=== PATIENT | male | born 1955 | race Hispanic/Latino ===

== ENCOUNTER 2019-02-01 11:44 | Outpatient (CLI) | payer OTHER ==
--- NOTE | 2019-02-01 12:08 | RAD ---
2 VIEWS LEFT SHOULDER: Date: 02/01/19 COMPARISON: None. HISTORY: left shoulder pain for 10 days. FINDINGS: 2 views of the left shoulder show no evidence of acute fracture or dislocation. No degenerative loving es are seen. No soft tissue swelling is present. IMPRESSION: Unremarkable exam. POS: [facility]
== END 2019-02-01 11:45 | disposition home or self-care (01) ==
LOC: BICRAD 11:44
PROVIDERS: ATTEND Family Medicine
DX: M25.512 Pain in left shoulder (principal); M25.522 Pain in left elbow

== ENCOUNTER 2024-07-24 23:49 | Inpatient (IN) | payer MEDICARE ==
[2024-07-25 02:36] VITALS: BMI 35.6
[2024-07-25] MEDS ORDERED: Ketorolac Tromethamine 30 MG (1 mL) VIAL IVP PRN (02:45)
[2024-07-25] MEDS: Sodium Chloride 0.9% 1,000 ML IV SCH (04:11)
[2024-07-25] MEDS: Piperacillin/Tazobactam 3.375 GM in Sodium Chloride 0.9% 100 ML IVPB SCH ×2 (04:11→09:04)
[2024-07-25] MEDS: Morphine 2 MG/ML VIAL SLOW IVP PRN (04:11)
[2024-07-25] MEDS ORDERED: Piperacillin/Tazobactam 4.5 GM in Sodium Chloride 0.9% 100 ML IVPB SCH (05:30)
[2024-07-25 05:42] LABS: #Basophils Less than 0.03 10x3/uL (0.0-0.2); #Eosinophils Less than 0.03 10x3/uL (0.0-0.7); %Basophils 0.1 % (0.0-1.0); %Eosinophils 0.1 % (0.0-10.0); %Lymphocytes 13.7 % (21.0-51.0); %Monocytes 6.7 % (0.0-10.0); %Neutrophils 78.9 % (42.0-75.0); Hematocrit 39.2 % (42.0-52.0); Hemoglobin 12.9 g/dL (14.0-18.0); Mean Corpuscular HGB CONC 32.9 g/dL (32.0-36.0); Mean Corpuscular Hemoglobin 31.4 pg (27.0-31.0); Mean Corpuscular Volume 95.4 fL (78.0-98.0); Mean Platelet Volume 9.4 fL (7.4-10.4); Platelet Count 187 10x3/uL (130-400); RBC Distribution Width 13.3 % (11.5-14.5); Red Blood Cell (RBC) Count 4.11 mill/uL (4.70-6.10)
[2024-07-25 06:01] LABS: ALT (SGPT) 26 U/L (8-55); AST (SGOT) 17 U/L (5-34); Albumin 3.1 g/dL (3.4-4.8); Alkaline Phosphatase 62 U/L (40-110); Anion Gap 11 mmol/L (10-20); BUN (Urea Nitrogen) 15 mg/dL (8.4-25.7); Bilirubin, Total 1.2 mg/dL (0.2-1.2); Calc. Creatinine Clearance 122 mL/min (70-130); Calcium 8.4 mg/dL (7.8-10.44); Carbon Dioxide 24 mmol/L (23-31); Chloride 107 mmol/L (98-107); Estimated GFR 98; Globulin 3.4 g/dL (2.4-3.5); Glucose 115 mg/dL (80-115); Potassium 4.2 mmol/L (3.5-5.1); Protein, Total 6.5 g/dL (5.8-8.1); Sodium 138 mmol/L (136-145)
[2024-07-25] MEDS: FLU (Fluad Triv) TS24-25 (65UP)/MF59C/PF 45 MCG/0.5 ML Syringe IM ONE (09:04)
[2024-07-25] MEDS: Pantoprazole 40 MG VIAL IVP SCH (09:04)
[2024-07-25] MEDS: Acetaminophen 500 MG TAB PO SCH ×2 (15:44→15:50)
[2024-07-25] MEDS: Lactated Ringer's 1,000 ML IV SCH (15:45)
[2024-07-25] MEDS: Enoxaparin 40 MG (0.4 mL) SYRINGE SC SCH (20:41)
[2024-07-25] MEDS: Polyethylene Glycol 3350 17 GM Packet PO SCH (20:41)
[2024-07-26 04:42] LABS: #Basophils Less than 0.03 10x3/uL (0.0-0.2); %Basophils 0.2 % (0.0-1.0); %Eosinophils 0.7 % (0.0-10.0); %Lymphocytes 25.2 % (21.0-51.0); %Neutrophils 64.6 % (42.0-75.0); Hematocrit 39.9 % (42.0-52.0); Hemoglobin 13.4 g/dL (14.0-18.0); Mean Corpuscular HGB CONC 33.6 g/dL (32.0-36.0); Mean Corpuscular Volume 92.4 fL (78.0-98.0); Mean Platelet Volume 9.7 fL (7.4-10.4); Platelet Count 186 10x3/uL (130-400); RBC Distribution Width 13.3 % (11.5-14.5); Red Blood Cell (RBC) Count 4.32 mill/uL (4.70-6.10)
[2024-07-26 05:17] LABS: ALT (SGPT) 23 U/L (8-55); AST (SGOT) 20 U/L (5-34); Albumin 2.9 g/dL (3.4-4.8); Alkaline Phosphatase 56 U/L (40-110); Anion Gap 11 mmol/L (10-20); BUN (Urea Nitrogen) 13 mg/dL (8.4-25.7); Bilirubin, Total 0.9 mg/dL (0.2-1.2); Calc. Creatinine Clearance 105 mL/min (70-130); Calcium 8.7 mg/dL (7.8-10.44); Carbon Dioxide 27 mmol/L (23-31); Chloride 108 mmol/L (98-107); Estimated GFR 92; Globulin 3.4 g/dL (2.4-3.5); Glucose 84 mg/dL (80-115); Potassium 4.1 mmol/L (3.5-5.1); Protein, Total 6.3 g/dL (5.8-8.1); Sodium 142 mmol/L (136-145)
[2024-07-26] MEDS: Morphine 2 MG/ML VIAL SLOW IVP PRN (06:58)
[2024-07-26] MEDS: Ondansetron PF 4 MG/2 ML Vial IVP PRN (08:44)
[2024-07-26] MEDS ORDERED: HYDROcodone/Acetaminophen 5/325 mg Tablet PO PRN (17:52)
[2024-07-26] MEDS: HYDROcodone/Acetaminophen 5/325 mg Tablet PO PRN (21:07)
[2024-07-27 04:48] LABS: #Basophils 0.03 10x3/uL (0.0-0.2); %Basophils 0.3 % (0.0-1.0); %Lymphocytes 24.2 % (21.0-51.0); %Monocytes 10.5 % (0.0-10.0); %Neutrophils 63.7 % (42.0-75.0); Hematocrit 41.8 % (42.0-52.0); Hemoglobin 13.9 g/dL (14.0-18.0); Mean Corpuscular HGB CONC 33.3 g/dL (32.0-36.0); Mean Corpuscular Hemoglobin 31.7 pg (27.0-31.0); Mean Corpuscular Volume 95.2 fL (78.0-98.0); Mean Platelet Volume 9.4 fL (7.4-10.4); Platelet Count 209 10x3/uL (130-400); Red Blood Cell (RBC) Count 4.39 mill/uL (4.70-6.10)
[2024-07-27 05:22] LABS: ALT (SGPT) 20 U/L (8-55); AST (SGOT) 14 U/L (5-34); Albumin 3.1 g/dL (3.4-4.8); Alkaline Phosphatase 62 U/L (40-110); Anion Gap 12 mmol/L (10-20); BUN (Urea Nitrogen) 11 mg/dL (8.4-25.7); Bilirubin, Total 1.2 mg/dL (0.2-1.2); Calc. Creatinine Clearance 110 mL/min (70-130); Calcium 8.8 mg/dL (7.8-10.44); Carbon Dioxide 26 mmol/L (23-31); Chloride 104 mmol/L (98-107); Estimated GFR 95; Globulin 3.6 g/dL (2.4-3.5); Glucose 82 mg/dL (80-115); Potassium 3.6 mmol/L (3.5-5.1); Protein, Total 6.7 g/dL (5.8-8.1); Sodium 138 mmol/L (136-145)
[2024-07-27] MEDS: Potassium Chloride 20 MEQ TAB PO SCH (11:46)
[2024-07-27] MEDS: Lactated Ringer's 1,000 ML IV SCH (11:47)
[2024-07-27] MEDS ORDERED: Cyclobenzaprine 10 MG TAB PO PRN (13:05)
[2024-07-27] MEDS ORDERED: Acetaminophen 500 MG TAB PO PRN (13:17)
[2024-07-27] MEDS: oxyCODONE/Acetaminophen 5 mg/325 mg Tablet PO SCH (15:14)
[2024-07-28 05:42] LABS: #Basophils Less than 0.03 10x3/uL (0.0-0.2); %Basophils 0.2 % (0.0-1.0); %Eosinophils 0.9 % (0.0-10.0); %Lymphocytes 24.8 % (21.0-51.0); %Monocytes 9.1 % (0.0-10.0); %Neutrophils 64.8 % (42.0-75.0); Hemoglobin 14.1 g/dL (14.0-18.0); Mean Corpuscular HGB CONC 34.4 g/dL (32.0-36.0); Mean Corpuscular Hemoglobin 31.1 pg (27.0-31.0); Mean Corpuscular Volume 90.5 fL (78.0-98.0); Mean Platelet Volume 9.2 fL (7.4-10.4); Platelet Count 232 10x3/uL (130-400); RBC Distribution Width 12.7 % (11.5-14.5); Red Blood Cell (RBC) Count 4.53 mill/uL (4.70-6.10)
[2024-07-28 06:05] LABS: ALT (SGPT) 20 U/L (8-55); AST (SGOT) 18 U/L (5-34); Alkaline Phosphatase 69 U/L (40-110); Anion Gap 12 mmol/L (10-20); BUN (Urea Nitrogen) 11 mg/dL (8.4-25.7); Bilirubin, Total 1.3 mg/dL (0.2-1.2); Calc. Creatinine Clearance 97 mL/min (70-130); Calcium 8.8 mg/dL (7.8-10.44); Carbon Dioxide 24 mmol/L (23-31); Chloride 102 mmol/L (98-107); Estimated GFR 85; Globulin 3.9 g/dL (2.4-3.5); Glucose 78 mg/dL (80-115); Potassium 3.8 mmol/L (3.5-5.1); Protein, Total 6.9 g/dL (5.8-8.1); Sodium 134 mmol/L (136-145)
[2024-07-28 11:08] VITALS: BP 147/75; TEMP 97.6
== END 2024-07-28 13:30 | disposition home or self-care (01) | DRG 392 ==
LOC: SURG B 07-25 02:03
PROVIDERS: ADMIT Student in an Organized Health Care Education/Training Program; ATTEND Student in an Organized Health Care Education/Training Program
DX: K57.20 Diverticulitis of large intestine with perforation and abscess without bleeding (principal); I10 Essential (primary) hypertension; K59.00 Constipation, unspecified; E66.01 Morbid (severe) obesity due to excess calories; K76.89 Other specified diseases of liver; K66.8 Other specified disorders of peritoneum; Z79.899 Other long term (current) drug therapy; Z68.35 Body mass index [BMI] 35.0-35.9, adult; Z98.890 Other specified postprocedural states; Z82.49 Family history of ischemic heart disease and other diseases of the circulatory system
CPT/HCPCS: 36415; 80053; 82105; 85025; 86141; J1650; J2272; J2405; J2470; J2543; J7030; J7120